=== PATIENT | female | born 1990 | race Caucasian/White ===

== ENCOUNTER 2018-12-03 16:30 | Day surgery (SDC) | payer BC ==
[2018-12-03] MEDS ORDERED: LIDOCAINE 1% (MPF) 30 ML INJ (17:18)
[2018-12-03] MEDS ORDERED: MIDAZOLAM 1 MG/ML 2 ML INJ (17:35)
[2018-12-03] MEDS ORDERED: FENTAnyl 50 MCG/ML VIAL (17:35)
[2018-12-03] MEDS ORDERED: PROPOFOL 20 ML ×2 (17:35→17:49)
[2018-12-03] MEDS ORDERED: DEXAMETHASONE 4 MG/ML 5 ML INJ (17:43)
[2018-12-03] MEDS ORDERED: ONDANSETRON 4 MG INJ (17:43)
[2018-12-03] MEDS ORDERED: METOCLOPRAMIDE 10 MG INJ (17:43)
[2018-12-03] MEDS ORDERED: KETOROLAC 30 MG INJ (17:43)
[2018-12-03] MEDS ORDERED: CEFAZOLIN 1 GM INJ (17:46)
[2018-12-03] MEDS: BUPIVACAINE 0.5% (SDV) 30 ML INJ INJ (17:54)
[2018-12-03] MEDS ORDERED: METOCLOPRAMIDE 10 MG INJ IV (18:00)
[2018-12-03] MEDS ORDERED: EPHEDrine 25 MG/5 ML SYG IV (18:00)
[2018-12-03] MEDS ORDERED: OXYCODONE/ACETAMINOPHEN (5/325) TAB PO (18:00)
[2018-12-03] MEDS ORDERED: ONDANSETRON 4 MG INJ IV (18:00)
[2018-12-03] MEDS ORDERED: HYDROmorphONE 1 MG/5 ML IV SYRINGE IV ×2 (18:00)
[2018-12-03] MEDS ORDERED: FENTAnyl 50 MCG/ML VIAL IV ×2 (18:00)
== END 2018-12-03 19:22 | disposition home or self-care (01) ==
LOC: SDS 16:30
DX: S62.623D Displaced fracture of middle phalanx of left middle finger, subsequent encounter for fracture with routine healing (principal); S60.132D Contusion of left middle finger with damage to nail, subsequent encounter; W23.0XXD Caught, crushed, jammed, or pinched between moving objects, subsequent encounter
CPT/HCPCS: 11760; 84703